=== PATIENT | female | born 1945 | race Caucasian/White ===

== ENCOUNTER 2020-11-15 14:58 | Emergency (ER) | payer MEDICARE, SELFPAY ==
--- NOTE | 2020-11-15 15:44 | ED.WOUNDLAC ---
HPI - Wound/Laceration General Chief Complaint: Wound/Laceration Stated Complaint: fellfranciscah in forehead Time Seen by Provider: 11/15/20 15:10 Source: patient Mode of arrival: Ambulatory History of Present Illness HPI narrative: Patient is a 75-year-old female who presents after a fall. She takes aspirin daily. He is caring too many gross trace when she tripped and fell into the recliner hitting the handle with her forehead. No loss of consciousness. No nausea or vomiting no numbness tingling or weakness. She was also wearing glasses and has a cast on her nose. Review of Systems Review of Systems Narrative: GENERAL: Denies chills,fever HEENT: Denies throat pain RESPIRATORY: Denies dyspnea, cough, wheezing CARDIOVASCULAR: Denies chest pain, palpitations GASTROINTESTINAL: Denies nausea, vomiting MUSCULOSKELETAL: Denies extremity pain, injury SKIN: Forehead laceration nose laceration, see HPI NEUROLOGIC: Denies weakness, dizziness, headache, numbness, no LOC 8 point review of systems is negative except for those stated above and HPI Exam Initial Vital Signs Initial Vital Signs: Vital Signs Pulse Rate 93 H 11/15/20 16:04 Blood Pressure 134/80 11/15/20 16:04 Pulse Oximetry 98 11/15/20 16:04 GENERAL: Well-appearing, well-nourished and in no acute distress. HEENT: Head atraumatic,EOMI, pupils reactive, face symmetric, moist mucous membranes NECK: No vertebral tenderness no step-offs full rotation flexion and extension CARDIOVASCULAR: Regular rate and rhythm without murmurs, rubs or gallops. RESPIRATORY: Breath sounds equal bilaterally, no wheezes rales or rhonchi. EXTREMITIES: Normal range of motion, no clubbing or edema. Neurovascularly intact NEUROLOGICAL: Alert and oriented x4.Normal gait and speech. Cranial nerves II through XII grossly intact. Independent Driver strength equal bilat SKIN: 3 cm laceration on right forehead. Abrasion on nose Procedures Laceration Repair Laceration 1: Site: face (forehead) Size (cm): 3 Description: linear Depth: simple, single layer Local Anesthetic: lidocaine 1% Amount of anesthesia used (mL): 4 Skin layer closed with: nylon Size (cm): 4-0 Number of sutures: 5 Technique: simple, interrupted Course Orders Ordered: Discontinued Medications Lidocaine HCl (Lidocaine 1% (Pf)) 4 ml SUBCUT NOW ONE Stop: 11/15/20 15:35 Last Admin: 11/15/20 15:47 Dose: 4 ml Documented by: KOFFI Vital Signs Vital signs: Vital Signs - 8 hr 11/15/20 16:04 Pulse Rate 93 H Blood Pressure 134/80 Pulse Oximetry 98 Discharge Plan Departure Patient Disposition: Home Clinical Impression: Laceration Instructions: DI for Laceration Repair Activity Restrictions/Additional Instructions: 1. Have your suture removed in 5-7 days, you may go to walk-in clinic, return to the ER or call your primary care physician. May apply Neosporin 1-2 times daily 2. No soaking in water including dishes, bathtubs, Lakes, swimming pools etc 3. Signs of infection include, but not limited to, increased redness, increased swelling, increased pain, fever and purulent drainage, if the symptoms should arise, you may need an antibiotic and you should have a reevaluation either by your primary care provider or by the emergency department.
[2020-11-15] MEDS: LIDOCAINE 1% (PF) 4 ML SUBCUT (15:47)
[2020-11-15 16:04] VITALS: BP 134/80; PULSE 93; O2SAT 98
== END 2020-11-15 16:12 | disposition home or self-care (01) ==
PROVIDERS: Emergency Provider Emergency Medicine
DX: S01.81XA Laceration without foreign body of other part of head, initial encounter (principal); W01.190A Fall on same level from slipping, tripping and stumbling with subsequent striking against furniture, initial encounter; Z79.82 Long term (current) use of aspirin
CPT/HCPCS: 12013; 99281; 99283

== ENCOUNTER → 2024-10-27 10:58 | Outpatient (CLI) | payer MEDICARE, SELFPAY ==
--- NOTE | 2024-10-27 11:00 | DI.RAD.S_ITS ---
PROCEDURE: XR ANKLE RT MIN 3V INDICATIONS: Right ankle injury TECHNIQUE: 3 views of the ankle were acquired. COMPARISON: None. FINDINGS: Bones: Questionable transverse nondisplaced fracture line at the distal fibular tip. Ankle mortise is normally aligned. No suspicious bony lesions. Small plantar calcaneal enthesophyte. Soft tissues: Nonspecific soft tissue edema most prominent over the lateral malleolus. Small nonspecific calcification in the anterolateral lower leg soft tissues. IMPRESSION: Questionable transverse nondisplaced fracture at the distal fibular tip. Approved by: Gustavo Guerra M.D. on 10/27/2024 at 11:17
== END ==
PROVIDERS: Referring Provider Registered Nurse; Visit Provider Registered Nurse
DX: M25.571 Pain in right ankle and joints of right foot (principal); M77.31 Calcaneal spur, right foot
CPT/HCPCS: 73610